=== PATIENT | male | born 1965 | race Caucasian/White ===

== ENCOUNTER 2017-03-01 18:19 | Emergency (ER) | payer BC, OTHER ==
[2017-03-01] MEDS ORDERED: Ketorolac 60 MG/2 ML SDV IM ONE (20:16)
--- NOTE | 2017-03-01 20:20 | EDM.PDOC ---
ED HPI GENERAL MEDICAL PROBLEM - General Chief Complaint: Back Pain or Injury Stated Complaint: PT HURT BACK Time Seen by Provider: 03/01/17 20:04 - History of Present Illness INITIAL COMMENTS - FREE TEXT/NARRATIVE: HISTORY AND PHYSICAL: History of present illness: Patient is 51-year-old white male presents with concern of low back strain occurred when from lifting an object today he denies numbness weakness incontinence or retention bowel or bladder he denies prior back problems and has no other complaints Review of systems: As per history of present illness and below otherwise all systems reviewed and negative. Past medical history: As per history of present illness and as reviewed below otherwise noncontributory. Surgical history: As per history of present illness and as reviewed below otherwise noncontributory. Social history: No reported history of drug or alcohol abuse. Family history: As per history of present illness and as reviewed below otherwise noncontributory. Physical exam: HEENT: Atraumatic, normocephalic, pupils reactive, negative for conjunctival pallor or scleral icterus, mucous membranes moist, throat clear, neck supple, nontender, trachea midline. Lungs: Clear to auscultation, breath sounds equal bilaterally, chest nontender. Heart: S1S2, regular, negative for clicks, rubs, or JVD. Abdomen: Soft, nondistended, nontender. Negative for masses or hepatosplenomegaly. Negative for costovertebral tenderness. Pelvis: Stable nontender. Genitourinary: Deferred. Rectal: Deferred. Extremities: Atraumatic, negative for cords or calf pain. Neurovascular unremarkable. Neuro: Awake, alert, oriented. Cranial nerves II through XII unremarkable. Cerebellum unremarkable. Motor and sensory unremarkable throughout. Exam nonfocal. Back: Patient is some mild paravertebral tenderness and spasm at the level of lumbar spine is no vertebral body tenderness patient able stand on his toes back on his heels and deep tendon reflexes are normal Diagnostics: Deferred Therapeutics: Toradol 60 mg IM Impression: #1 acute lumbosacral strain Definitive disposition and diagnosis as appropriate pending reevaluation and review of above. Lower Back Pain Score (Numeric/FACES): 7 - Related Data Allergies Allergy/AdvReac Type Severity Reaction Status Date / Time No Known Allergies Allergy Verified 03/01/17 19:14 Home Meds: Home Meds . [No Known Home Meds] 03/01/17 [History] Past Medical History - Past Health History Medical/Surgical History: Denies Medical/Surgical History HEENT History: Reports: None Cardiovascular History: Reports: None Respiratory History: Reports: None Gastrointestinal History: Reports: None Genitourinary History: Reports: None Musculoskeletal History: Reports: None Neurological History: Reports: None Psychiatric History: Reports: None Endocrine/Metabolic History: Reports: None Dermatologic History: Reports: None - Past Surgical History Male Surgical History: Reports: None Social & Family History - Tobacco Use Smoking Status *Q: Current Every Day Smoker Years of Tobacco use: 30 Packs/Tins Daily: 1 - Caffeine Use Caffeine Use: Reports: Coffee - Recreational Drug Use Recreational Drug Use: No ED ROS GENERAL - Review of Systems Review Of Systems: ROS reveals no pertinent complaints other than HPI. ED EXAM, GENERAL - Physical Exam Exam: See Below (See dictation) Course - Vital Signs Last Recorded V/S: Last Vital Signs Temp 36.4 C 03/01/17 19:11 Pulse 74 03/01/17 19:11 Resp 18 03/01/17 19:11 BP 106/64 03/01/17 19:11 Pulse Ox 97 03/01/17 19:11 - Orders/Labs/Meds Meds: Medications Discontinued Medications Generic Name Dose Route Start Last Admin Trade Name Freq PRN Reason Stop Dose Admin Ketorolac Tromethamine 60 mg 03/01/17 20:16 Toradol IM 03/01/17 20:17 ONETIME ONE Departure - Departure Time of Disposition: 20:18 Disposition: Home, Self-Care 01 Condition: Good Clinical Impression: Lumbar strain - Discharge Information Referrals: PCP,None [Primary Care Provider] - Additional Instructions: The following information is given to patients seen in the emergency department who are being discharged to home.follow-up care. We provide all patients seen in our emergency department with a follow-up referral. The need for follow-up, as well as the timing and circumstances, are variable depending upon the specifics of your emergency department visit. If you don't have a primary care physician on staff, we will provide you with a referral. We always advise you to contact your personal physician following an emergency department visit to inform them of the circumstance of the visit and for follow-up with them and/or the need for any referrals to a consulting specialist. The emergency department will also refer you to a specialist when appropriate. This referral assures that you have the opportunity for followup care with a specialist. All of these measure are taken in an effort to provide you with optimal care, which includes your followup. Under all circumstances we always encourage you to contact your private physician who remains a resource for coordinating your care. When calling for followup care, please make the office aware that this follow-up is from your recent emergency room visit. If for any reason you are refused follow-up, please contact the [facility] emergency department at and asked to speak to the emergency department charge nurse. [facility] [place] [id number] Medrol Flexeril Ultram as prescribed called schedule routine appointment with primary care above return as needed as discussed
[2017-03-01 22:09] VITALS: BP 108/68
== END 2017-03-01 20:35 | disposition home or self-care (01) ==
LOC: MW.ED 18:19
DX: S39.012A Strain of muscle, fascia and tendon of lower back, initial encounter (principal); F17.210 Nicotine dependence, cigarettes, uncomplicated; X50.0XXA Overexertion from strenuous movement or load, initial encounter; Y99.0 Civilian activity done for income or pay
CPT/HCPCS: 96372; 99283; J1885

== ENCOUNTER 2019-07-02 22:42 | Emergency (ER) | payer BC ==
[2019-07-02 23:41] LABS: BLOOD UREA NITROGEN,BUN 14 mg/dL (7.0-18.0); CARBON DIOXIDE,CO2 23.9 mmol/L (21.0-32.0); CHLORIDE,CL 104 mmol/L (98-107); GLUCOSE RANDOM 109 mg/dL (74-106); POTASSIUM,K 3.7 mmol/L (3.5-5.1); SODIUM,NA 140 mmol/L (136-148)
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
[2019-07-03 00:15] VITALS: BP 114/69; PULSE 70
== END 2019-07-03 00:14 | disposition home or self-care (01) ==
LOC: MW.ED 22:42
DX: T75.4XXA Electrocution, initial encounter (principal); W86.1XXA Exposure to industrial wiring, appliances and electrical machinery, initial encounter; Y99.0 Civilian activity done for income or pay; F17.210 Nicotine dependence, cigarettes, uncomplicated
CPT/HCPCS: 36415; 80053; 81003; 82550; 85025; 93005; 99283; 99283-25

== ENCOUNTER 2019-07-06 08:24 | Emergency (ER) | payer BC ==
[2019-07-06] MEDS ORDERED: Ibuprofen 600 MG Tab PO ONE (08:52)
--- NOTE | 2019-07-06 09:17 | EDM.PDOC ---
ED HPI GENERAL MEDICAL PROBLEM - General Chief Complaint: General Stated Complaint: SORE THROAT, CONGESTION, HEADACHE Time Seen by Provider: 07/06/19 08:46 - History of Present Illness INITIAL COMMENTS - FREE TEXT/NARRATIVE: Sudden onset flulike symptoms runny nose nasal congestion sore throat nonproductive cough body ache fever chills x1 day. Denies any abdominal pain positive nausea no diarrhea no vomiting. Patient denies any chest pain or shortness of breath. Positive malaise. Patient does not get flu shot he is otherwise healthy does not take any medication no chronic medical condition. [place]ce Pain Score (Numeric/FACES): 7 - Related Data Allergies Allergy/AdvReac Type Severity Reaction Status Date / Time No Known Allergies Allergy Verified 07/06/19 08:43 Home Meds: Home Meds Amoxicillin/Potassium Clav [Augmentin 875-125 Tablet] 1 each PO Q12HR #20 tablet 07/06/19 [Rx] Ibuprofen [Motrin] 600 mg PO Q8H PRN #20 tab 07/06/19 [Rx] Past Medical History - Past Health History Medical/Surgical History: Denies Medical/Surgical History HEENT History: Reports: None Cardiovascular History: Reports: None Respiratory History: Reports: None Gastrointestinal History: Reports: None Genitourinary History: Reports: None Musculoskeletal History: Reports: None Neurological History: Reports: None Psychiatric History: Reports: None Endocrine/Metabolic History: Reports: None Dermatologic History: Reports: None - Infectious Disease History Infectious Disease History: Reports: Chicken Pox - Past Surgical History Male Surgical History: Reports: None Social & Family History - Family History Family Medical History: Noncontributory - Tobacco Use Smoking Status *Q: Current Every Day Smoker Years of Tobacco use: 30 Packs/Tins Daily: 1 - Caffeine Use Caffeine Use: Reports: Coffee, Energy Drinks, Soda - Recreational Drug Use Recreational Drug Use: No ED ROS GENERAL - Review of Systems Review Of Systems: See Below Constitutional: Reports: Fever, Chills, Malaise, Weakness, Fatigue HEENT: Reports: Rhinitis, Sinus Problem, Throat Pain Respiratory: Reports: Cough Cardiovascular: Reports: No Symptoms GI/Abdominal: Reports: No Symptoms Musculoskeletal: Reports: Muscle Pain Skin: Reports: No Symptoms Neurological: Reports: No Symptoms Hematologic/Lymphatic: Reports: No Symptoms Immunologic: Reports: No Symptoms ED EXAM, GENERAL - Physical Exam Exam: See Below Exam Limited By: No Limitations General Appearance: Alert, Mild Distress Ears: Normal External Exam Ear Exam: Bilateral Ear: Auricle Normal, Canal Normal, TM normal Nose: Nasal Drainage, Clear Rhinorrhea. No: Nasal Deformity, Nasal Swelling Throat/Mouth: Inflammation Head: Atraumatic, Normocephalic Neck: Normal Inspection, Supple, Non-Tender, Full Range of Motion Respiratory/Chest: No Respiratory Distress, Lungs Clear, Normal Breath Sounds, No Accessory Muscle Use, Chest Non-Tender Cardiovascular: Normal Peripheral Pulses, Regular Rate, Rhythm, No Edema, No Gallop, No JVD, No Murmur, No Rub GI/Abdominal: Normal Bowel Sounds, Soft, Non-Tender, No Organomegaly, No Distention, No Abnormal Bruit, No Mass Back Exam: Normal Inspection, Full Range of Motion, NT Extremities: Normal Inspection, Normal Range of Motion, Non-Tender, Normal Capillary Refill, No Pedal Edema Neurological: Alert, Oriented, CN II-XII Intact, Normal Cognition, Normal Gait, Normal Reflexes, No Motor/Sensory Deficits Psychiatric: Normal Affect, Normal Mood Skin Exam: Warm, Dry, Intact, Normal Color, No Rash Lymphatic: No Adenopathy Course - Vital Signs Last Recorded V/S: Last Vital Signs Temp 97.1 F 07/06/19 08:40 Pulse 62 07/06/19 08:40 Resp 18 07/06/19 08:40 BP 142/67 H 07/06/19 08:40 Pulse Ox 99 07/06/19 08:40 - Orders/Labs/Meds Meds: Medications Discontinued Medications Generic Name Dose Route Start Last Admin Trade Name Katie PRN Reason Stop Dose Admin Ibuprofen 600 mg 07/06/19 08:52 07/06/19 09:04 Motrin PO 07/06/19 08:53 600 mg ONETIME ONE Administration Departure - Departure Time of Disposition: 09:26 Disposition: Home, Self-Care 01 Condition: Good, Fair Clinical Impression: Sinusitis Qualifiers: Sinusitis location: unspecified location Chronicity: acute - Discharge Information Instructions: Sinusitis, Adult, [id number] Referrals: PCP,None [Primary Care Provider] - Forms: ED Department Discharge Sepsis Event Note - Evaluation Sepsis Screening Result: No Definite Risk - Focused Exam Vital Signs: Vital Signs Temp Pulse Resp BP Pulse Ox 07/06/19 08:40 97.1 F 62 18 142/67 H 99 Date Exam was Performed: 07/06/19 Time Exam was Performed: 09:26
[2019-07-06 09:47] VITALS: BP 122/68; PULSE 56
== END 2019-07-06 09:48 | disposition home or self-care (01) ==
LOC: MW.ED 08:24
DX: J01.90 Acute sinusitis, unspecified (principal); F17.210 Nicotine dependence, cigarettes, uncomplicated
CPT/HCPCS: 87804; 99283; A9270

== ENCOUNTER 2019-08-29 12:07 | Emergency (ER) | payer BC ==
--- NOTE | 2019-08-29 12:10 | EDM.PDOC ---
ED HPI GENERAL MEDICAL PROBLEM - General Chief Complaint: Lower Extremity Injury/Pain Stated Complaint: RT KNEE PAIN Time Seen by Provider: 08/29/19 12:10 Source of Information: Reports: Patient History Limitations: Reports: No Limitations - History of Present Illness INITIAL COMMENTS - FREE TEXT/NARRATIVE: This 54 year old male states that he fell two weeks ago injuring his right knee. At that time he complained of gross swelling of the medial aspects of the right knee. He applied ice and purchased a knee wrap. He states that he was doing fine until last night when his right knee buckled and he twisted it. He complains of pain and swelling over the medial aspects of the right knee. He is here for further evaluation. He denies any other symptoms at this time. Onset: Other (yesterday and two weeks ago) Location: Reports: Lower Extremity, Right Severity: Mild (to moderate) Improves with: Reports: None Worsens with: Reports: Movement (and weight bearing) right knee Pain Score (Numeric/FACES): 7 - Related Data Allergies Allergy/AdvReac Type Severity Reaction Status Date / Time No Known Allergies Allergy Verified 08/29/19 12:14 Home Meds: Home Meds . [No Known Home Meds] 08/29/19 [History] Past Medical History - Past Health History Medical/Surgical History: Denies Medical/Surgical History HEENT History: Reports: None Cardiovascular History: Reports: None Respiratory History: Reports: None Gastrointestinal History: Reports: None Genitourinary History: Reports: None Musculoskeletal History: Reports: None Neurological History: Reports: None Psychiatric History: Reports: None Endocrine/Metabolic History: Reports: None Dermatologic History: Reports: None - Infectious Disease History Infectious Disease History: Reports: Chicken Pox - Past Surgical History Male Surgical History: Reports: None Social & Family History - Family History Family Medical History: Noncontributory - Caffeine Use Caffeine Use: Reports: Coffee, Energy Drinks, Soda ED ROS GENERAL - Review of Systems Review Of Systems: See Below Constitutional: Reports: No Symptoms HEENT: Reports: No Symptoms Respiratory: Reports: No Symptoms Cardiovascular: Reports: No Symptoms Endocrine: Reports: No Symptoms GI/Abdominal: Reports: No Symptoms : Reports: No Symptoms Musculoskeletal: Reports: Joint Pain (right knee) Skin: Reports: No Symptoms Neurological: Reports: No Symptoms ED EXAM, GENERAL - Physical Exam Exam: See Below Exam Limited By: No Limitations General Appearance: Alert, WD/WN, No Apparent Distress Throat/Mouth: Normal Inspection, Normal Lips, Normal Teeth, Normal Gums, Normal Oropharynx, Normal Voice, No Airway Compromise Head: Atraumatic, Normocephalic Neck: Normal Inspection, Supple, Non-Tender, Full Range of Motion Respiratory/Chest: No Respiratory Distress, Lungs Clear, Normal Breath Sounds, No Accessory Muscle Use, Chest Non-Tender Cardiovascular: Normal Peripheral Pulses, Regular Rate, Rhythm, No Edema, No Gallop, No JVD, No Murmur, No Rub Peripheral Pulses: 3+: Radial (L), Radial (R), Dorsalis Pedis (L), Dorsalis Pedis (R) GI/Abdominal: Normal Bowel Sounds, Soft, Non-Tender (Male) Exam: Deferred Rectal (Males) Exam: Deferred Back Exam: Normal Inspection, Full Range of Motion Extremities: Normal Capillary Refill, Other (Tenderness is noted over the medial aspects of the right knee. No joint efussion. Decrease flexion and extention with terminal pain.). No: Joint Swelling Neurological: Alert, Oriented (times 4), CN II-XII Intact, Normal Reflexes, No Motor/Sensory Deficits Psychiatric: Normal Affect, Normal Mood Skin Exam: Warm, Dry, Intact, Normal Color, No Rash Lymphatic: No Adenopathy Course - Vital Signs Text/Narrative:: I discussed the CT of the right knee with the patient. He will be discharged. He agrees with the discharge plans. Last Recorded V/S: Last Vital Signs Temp 96.7 F L 08/29/19 12:14 Pulse 68 08/29/19 12:14 Resp 18 08/29/19 12:14 BP 123/78 08/29/19 12:14 Pulse Ox 99 08/29/19 12:14 - Orders/Labs/Meds Orders: Active Orders 24 hr Category Date Time Status Knee wo Cont Rt [CT] Stat Exams 08/29/19 12:29 Taken Departure - Departure Time of Disposition: 14:35 Disposition: Home, Self-Care 01 Condition: Good Clinical Impression: Contusion of right knee Qualifiers: Encounter type: initial encounter Qualified Code(s): S80.01XA - Contusion of right knee, initial encounter Sprain of right knee Qualifiers: Encounter type: initial encounter Involved ligament of knee: medial collateral ligament Qualified Code(s): S83.411A - Sprain of medial collateral ligament of right knee, initial encounter - Discharge Information *PRESCRIPTION DRUG MONITORING PROGRAM REVIEWED*: Yes *COPY OF PRESCRIPTION DRUG MONITORING REPORT IN PATIENT BETTY: Yes Instructions: Knee Sprain, Adult, [id number], Elastic Bandage and RICE Therapy, Contusion Referrals: PCP,None [Primary Care Provider] - Forms: ED Department Discharge, ED Return to Work/School Form Additional Instructions: Take Tylenol or Motrin for pain. Follow up with local Orthopedic surgeon in the next four to six days for further evaluation. Wear nieves wrap for the next three to four days. Cold compresses to the right knee for the next two to three days (30 minutes on and one hour off while awake). Rest for the next 24 hours. Return to the ED if your condition gets worse or should you have any questions or concerns. The following information is given to patients seen in the emergency department who are being discharged to home. This information is to outline your options for follow-up care. We provide all patients seen in our emergency department with a follow-up referral. The need for follow-up, as well as the timing and circumstances, are variable depending upon the specifics of your emergency department visit. If you don't have a primary care physician on staff, we will provide you with a referral. We always advise you to contact your personal physician following an emergency department visit to inform them of the circumstance of the visit and for follow-up with them and/or the need for any referrals to a consulting specialist. The emergency department will also refer you to a specialist when appropriate. This referral assures that you have the opportunity for follow-up care with a specialist. All of these measure are taken in an effort to provide you with optimal care, which includes your follow-up. Under all circumstances we always encourage you to contact your private physician who remains a resource for coordinating your care. When calling for follow-up care, please make the office aware that this follow-up is from your recent emergency room visit. If for any reason you are refused follow-up, please contact the [facility] Emergency Department at and asked to speak to the emergency department charge nurse. Sepsis Event Note - Focused Exam Vital Signs: Vital Signs Temp Pulse Resp BP Pulse Ox 08/29/19 12:14 96.7 F L 68 18 123/78 99 Date Exam was Performed: 08/29/19 Time Exam was Performed: 14:23 - My Orders Last 24 Hours: My Active Orders 08/29/19 12:29 Knee wo Cont Rt [CT] Stat - Assessment/Plan Last 24 Hours: My Active Orders 08/29/19 12:29 Knee wo Cont Rt [CT] Stat
[2019-08-29 12:19] VITALS: BP 123/78; PULSE 68
--- NOTE | 2019-08-29 14:31 | CT ---
EXAM DATE: 08/29/19 PATIENT'S AGE: 54 CT right knee Technique: Multiple axial sections through the right knee were obtained. Reconstructed coronal and sagittal images were obtained. Findings: Moderate to severe medial joint space narrowing is seen. Lateral joint space is preserved. Patellofemoral joint appears within normal limits. No fracture is appreciated. Slight osteophytes are noted off the medial joint. Minimal osteophytes off the patella are seen. Impression: 1. Degenerative change as noted above. 2. No acute bony abnormality is appreciated. Diagnostic code #2 Study was dictated in MDT Report Signed by Proxy. MARSHALL
== END 2019-08-29 14:29 | disposition home or self-care (01) ==
LOC: MW.ED 12:07
DX: S83.411A Sprain of medial collateral ligament of right knee, initial encounter (principal); W22.8XXA Striking against or struck by other objects, initial encounter
CPT/HCPCS: 73700-26-RT; 73700-RT; 99282; 99283-25

== ENCOUNTER 2020-02-09 13:07 | Emergency (ER) | payer BC ==
[2020-02-09] MEDS ORDERED: Acetaminophen 325 MG Tab PO ONE (15:08)
[2020-02-09] MEDS ORDERED: Ibuprofen 600 MG Tab PO ONE (15:08)
[2020-02-09] MEDS ORDERED: Lidocaine 1% 10 ML MDV INJECT ONE (15:09)
--- NOTE | 2020-02-09 15:11 | EDM.PDOC ---
ED HPI GENERAL MEDICAL PROBLEM - General Chief Complaint: Laceration Stated Complaint: HAND LACERATION Time Seen by Provider: 02/09/20 13:12 - History of Present Illness INITIAL COMMENTS - FREE TEXT/NARRATIVE: HISTORY AND PHYSICAL: History of present illness: 54-year-old male with no significant past medical history and tetanus up-to-date who presents to the emergency department with a left index finger laceration. He was using a razor knife to cut deny when it slipped and hit his finger. The pain is quite severe. Full range of motion is intact. Review of systems: A 10-point review of systems, other than pertinent positives and negatives as stated per HPI, is otherwise negative. Past medical history: As per history of present illness and as reviewed below otherwise noncontributory. Surgical history: As per history of present illness and as reviewed below otherwise noncontributory. Social history: No reported history of drug or alcohol abuse. Family history: As per history of present illness and as reviewed below otherwise noncontributory. Physical exam: VITAL SIGNS: Reviewed. GENERAL: In no apparent distress. HEAD: No signs of head trauma. EYES: Pupils are equal. Extraocular motions intact. EARS: Hearing grossly intact. MOUTH: Oropharynx is normal. NECK: No adenopathy, no JVD. CHEST: Chest with clear breath sounds bilaterally. No wheezes, rales, or rhonchi. CARDIAC: Regular rate and rhythm. Normal S1 and S2, without murmurs, gallops, or rubs. VASCULAR: Peripheral pulses normal and equal in all extremities. ABDOMEN: Soft, without detectable tenderness. No sign of distention. No rebound or guarding, and no masses palpated. MUSCULOSKELETAL: 5.5 cm laceration of the left index finger. Distal neurovascular function is intact. On the side of the injury there is some slight paresthesias with abnormal two-point discrimination. Otherwise normal distal neurovascular function. NEUROLOGIC EXAM: Alert and oriented x 3. No focal sensory or motor deficits. Speech normal. Follows commands. PSYCHIATRIC: Mood normal. SKIN: No rash or lesions. Initial Differential Diagnosis & Plan: Extremity trauma: Differential diagnosis includes fracture, dislocation, strain, contusion, tendon or ligamentous injury, compartment syndrome, neurovascular injury, muscle rupture. The patient suffered a laceration of his left index finger. No clear evidence of ligamentous injury. We will clean this, repair, and evaluate for underlying injury. I will have the [facility], perform this repair. Definitive disposition and diagnosis as appropriate pending reevaluation and review of above. Left Finger-Index Pain Score (Numeric/FACES): 6 - Related Data Allergies Allergy/AdvReac Type Severity Reaction Status Date / Time No Known Allergies Allergy Verified 08/29/19 12:14 Home Meds: Home Meds Mupirocin Oint [Bactroban Oint] 22 gm TP BID 14 Days #1 tube 02/09/20 [Rx] Past Medical History - Past Health History Medical/Surgical History: Denies Medical/Surgical History HEENT History: Reports: None Cardiovascular History: Reports: None Respiratory History: Reports: None Gastrointestinal History: Reports: None Genitourinary History: Reports: None Musculoskeletal History: Reports: None Neurological History: Reports: None Psychiatric History: Reports: None Endocrine/Metabolic History: Reports: None Hematologic History: Reports: None Immunologic History: Reports: None Oncologic (Cancer) History: Reports: None Dermatologic History: Reports: None - Infectious Disease History Infectious Disease History: Reports: Chicken Pox - Past Surgical History Head Surgeries/Procedures: Reports: None Male Surgical History: Reports: None Oncologic Surgical History: Reports: None Social & Family History - Family History Family Medical History: Noncontributory - Tobacco Use Smoking Status *Q: Never Smoker - Caffeine Use Caffeine Use: Reports: Coffee, Energy Drinks, Soda - Recreational Drug Use Recreational Drug Use: No ED ROS GENERAL - Review of Systems Review Of Systems: See Below (noted) ED EXAM, SKIN/RASH Exam: See Below (noted) Course - Vital Signs Last Recorded V/S: Last Vital Signs Temp 96.7 F L 02/09/20 16:13 Pulse 58 L 02/09/20 16:13 Resp 16 02/09/20 16:13 BP 128/77 02/09/20 16:13 Pulse Ox 96 02/09/20 16:13 - Orders/Labs/Meds Meds: Medications Discontinued Medications Generic Name Dose Route Start Last Admin Trade Name Freq PRN Reason Stop Dose Admin Acetaminophen 975 mg 02/09/20 15:08 02/09/20 15:13 Tylenol PO 02/09/20 15:09 975 mg NOW ONE Administration Ibuprofen 600 mg 02/09/20 15:08 02/09/20 15:13 Motrin PO 02/09/20 15:09 600 mg ONETIME ONE Administration Lidocaine HCl 10 ml 02/09/20 15:09 02/09/20 15:15 Xylocaine 1% INJECT 02/09/20 15:10 Not Given ONETIME ONE Lidocaine HCl 10 ml 02/09/20 15:14 02/09/20 15:15 Xylocaine-Mpf 1% INJECT 02/09/20 15:15 10 ml ONETIME ONE Administration Lidocaine HCl Confirm 02/09/20 15:12 02/09/20 16:13 Xylocaine-Mpf 1% Administered 02/09/20 15:13 Not Given Dose 10 ml .ROUTE .STK-MED ONE Departure - Departure Time of Disposition: 15:10 Disposition: Home, Self-Care 01 Clinical Impression: Laceration of index finger of left hand without complication - Discharge Information *PRESCRIPTION DRUG MONITORING PROGRAM REVIEWED*: Not Applicable *COPY OF PRESCRIPTION DRUG MONITORING REPORT IN PATIENT BETTY: Not Applicable Prescriptions: Mupirocin Oint [Bactroban Oint] 22 gm TP BID 14 Days #1 tube Instructions: Laceration Care, Adult Referrals: PCP,None [Primary Care Provider] - Forms: ED Department Discharge Additional Instructions: The following information is given to patients seen in the emergency department who are being discharged to home. This information is to outline your options for follow-up care. We provide all patients seen in our emergency department with a follow-up referral. The need for follow-up, as well as the timing and circumstances, are variable depending upon the specifics of your emergency department visit. If you don't have a primary care physician on staff, we will provide you with a referral. We always advise you to contact your personal physician following an emergency department visit to inform them of the circumstance of the visit and for follow-up with them and/or the need for any referrals to a consulting specialist. The emergency department will also refer you to a specialist when appropriate. This referral assures that you have the opportunity for follow-up care with a specialist. All of these measure are taken in an effort to provide you with optimal care, which includes your follow-up. Thank you for coming to the [facility] urgency department for your care today. It was Dr. Baptiste's pleasure to take care of you. [facility] - Primary Care [address] [place] [id number] [facility] [address] [place] [id number] You will need suture removal in the next 10 to 14 days. Please keep the splint in place to limit movement of your laceration and prevent breakage of the sutures and opening of the wound. Use the antibiotic ointment 2-3 times a day and wash daily in the shower. Do not soak, go in the pool, go in the [place] or river. Return for signs of infection. We are always happy to see you. Under all circumstances we always encourage you to contact your private physician who remains a resource for coordinating your care. When calling for follow-up care, please make the office aware that this follow-up is from your recent emergency room visit. If for any reason you are refused follow-up, please contact the [facility] Emergency Department at and asked to speak to the emergency department charge nurse. Sepsis Event Note (ED) - Evaluation Sepsis Screening Result: No Definite Risk - Focused Exam Vital Signs: Vital Signs Temp Pulse Resp BP Pulse Ox 02/09/20 16:13 96.7 F L 58 L 16 128/77 96 02/09/20 14:55 98.7 F 71 18 134/72 97
[2020-02-09 16:16] VITALS: BP 128/77; PULSE 58
--- NOTE | 2020-02-09 16:43 | PCM.PRNOTE ---
ED LACERATION/WOUND PROCEDURES - Laceration/Wound Repair Left Lateral Digit - 2nd (Index) Laceration/Wound Length In cm: 5 Appearance: Subcutaneous, Irregular, Mildly Contaminated Distal NVT: Neuro & Vascular Intact, No Tendon Injury Local Anesthesia - Lidocaine (Xylocaine): 1% Plain Local Anesthetic Volume: Other (10) Skin Prep: Chlorhexidine (Hibiciens), Providone-Iodine (Betadine), Saline Saline Irrigation Total cc's: 150 Wound Exploration, Debridement, Revision: Wound Explored, In a Bloodless Field, Explored to Base, No Foreign Material Found Suture Size: 4-0 # of Sutures: 9 Suture Type: Silk, Interrupted Drain Placement: No Sterile Dressing Applied: Nurse Complications: None
== END 2020-02-09 16:13 | disposition home or self-care (01) ==
LOC: MW.ED 13:07
DX: S61.211A Laceration without foreign body of left index finger without damage to nail, initial encounter (principal); W26.0XXA Contact with knife, initial encounter
CPT/HCPCS: 12002; 99282; A9270; J2001